=== PATIENT | male | born 1980 | race Caucasian/White ===

== ENCOUNTER 2017-08-14 19:12 | Emergency (ER) | payer OTHER ==
[2017-08-14 19:25] VITALS: BP 134/73; PULSE 79; RESP 18; TEMP 98.2
[2017-08-14] MEDS ORDERED: traMADol 50 MG STARTER PACK 3 TAB BTL PO STA (19:45)
--- NOTE | 2017-08-14 19:45 | ED ---
General Adult HPI - General Chief complaint: Extremity Injury, Upper Stated complaint: loss of function in R arm & hand Time Seen by Provider: 08/14/17 19:27 Source: patient, RN notes reviewed Mode of arrival: ambulatory Limitations: no limitations - History of Present Illness Initial comments: 36-year-old male presents to the emergency Department chief complaint of right shoulder pain. Patient has chronically and right shoulder pain for the past 6 months or so. He is worked up by his doctor in 7 MRI but he never had it because he was claustrophobic. Patient states since she's had worsening shoulder pain he gets tenderness and tingling to his hands from time to time. Patient denies any changes in any falls any trauma to the shoulder. Was hoping that we can give him something to help with his pain also discussed with him what he should do next. He denies any other symptoms at this time.Patient denies any recent fever, chills, shortness of breath, chest pain, back pain, abdominal pain, nausea vomiting, numbness or tingling, dysuria or hematuria, constipation or diarrhea, headaches or visual changes, or any other current symptoms. - Related Data Home Medications Medication Instructions Recorded Confirmed Ibuprofen [Motrin] 800 mg PO Q6HR PRN 08/14/17 08/14/17 Previous Rx's Medication Instructions Recorded traMADol HCl [Ultram] 50 mg PO Q6H PRN #20 tab 08/14/17 Allergies Allergy/AdvReac Type Severity Reaction Status Date / Time No Known Allergies Allergy Verified 08/14/17 19:35 Review of Systems ROS Statement: Those systems with pertinent positive or pertinent negative responses have been documented in the HPI. ROS Other: All systems not noted in ROS Statement are negative. Past Medical History Past Medical History: No Reported History History of Any Multi-Drug Resistant Organisms: None Reported Past Surgical History: Hernia Repair Past Psychological History: No Psychological Hx Reported Smoking Status: Current every day smoker Past Alcohol Use History: None Reported Past Drug Use History: None Reported General Exam - General Exam Comments Initial Comments: General: The patient is awake and alert, in no distress, and does not appear acutely ill. Neck: The neck is supple, there is no tenderness. Cardiovascular: There is a regular rate and rhythm. No murmur, rub or gallop is appreciated. Respiratory: Lungs are clear to auscultation, respirations are non-labored, breath sounds are equal. No wheezes, stridor, rales, or rhonchi. Musculoskeletal: Sensation intact with 2+ pulses. Pressure. Fund motion of right hand right wrist. Patient does have full range of motion of right shoulder however there is pain at extremes. Tenderness patient along the right trapezius. Neurological: CN II-XII intact, There are no obvious motor or sensory deficits. Coordination appears grossly intact. Speech is normal. Skin: Skin is warm and dry and no rashes or lesions are noted. Psychiatric: Normal mood and affect. Limitations: no limitations Course Vital Signs 08/14/17 19:23 Temperature 98.2 F Pulse Rate 79 Respiratory 18 Rate Blood Pressure 134/73 O2 Sat by Pulse 98 Oximetry Medical Decision Making - Medical Decision Making 36-year-old male presents for what appears to be a right shoulder strain. At this time we discussed that he needs an MRI which they had scheduled that he never followed up on. We discussed his numbness and tingling is coming from his right shoulder strain. We did discuss the importance of follow-up we discussed the could need physical therapy we discussed the could need surgery. We did discuss the importance of follow-up care. The patient stated he understood and is in agreement this plan. All questions have been answered. He 'll be discharged. Disposition Clinical Impression: Right shoulder strain Disposition: HOME SELF-CARE Condition: Stable Instructions: Rotator Cuff Injury (ED) Additional Instructions: Please use medication as discussed. Please follow up with family doctor if symptoms have not improved over the next two days. Please return to the emergency room if your symptoms increase or worsen or for any other concerns. Prescriptions: traMADol HCl [Ultram] 50 mg PO Q6H PRN #20 tab PRN Reason: Pain Referrals: Yovany Dupont MD [Primary Care Provider] - 1-2 days Olivier Sotelo MD [STAFF PHYSICIAN] - 1-2 days Time of Disposition: 19:45
== END 2017-08-14 20:07 | disposition home or self-care (01) ==
LOC: EC 19:12
DX: S46.911A Strain of unspecified muscle, fascia and tendon at shoulder and upper arm level, right arm, initial encounter (principal); F17.200 Nicotine dependence, unspecified, uncomplicated; X58.XXXA Exposure to other specified factors, initial encounter
CPT/HCPCS: 99283

== ENCOUNTER → 2018-03-08 | Outpatient (CLI) | payer OTHER ==
--- NOTE | 2018-03-08 22:18 | MR ---
MRI CERVICAL SPINE: CLINICAL HISTORY: M54.2 per order. Headache with neck pain causing pain or weakness into right arm an d hand after football injury per patient. TECHNIQUE: Multiplanar, multisequence imaging of the cervical spine is performed without IV contrast. COMPARISON: None. FINDINGS: Mild to moderate mucosal thickening visualized portion of right maxillary sinus is present sagittal image one. Sagittal images of the cervical spine show the craniocervical junction to appear within normal limits. The cervical and upper thoracic spinal cord is normal in course, caliber, and signal. Exaggerated cervical curvature is seen on sagittal images. The vertebral body heights are no rmal. There is [id number] multilevel disc space narrowing C3-C4 through the C5-C6 levels. Small posterior disc herniation effacing the anterior thecal sac at these levels. The bone marrow signal intensity is within normal limits. Mild multilevel anterior spurring mid cervical spine is noted. Axial images show the C2-C3 level to appear within normal limits. Axial images at C3-C4 level showed broad based posterior disc protrusion effacing the anterior thecal sac and causing mild bilateral neural foraminal narrowing due to marginal spur disc complex. Axial images at C4-C5 level showed broad based posterior disc protrusion effacing anterior thecal sac and causing moderate left and mild right-sided neural foraminal narrowing. Axial images at C5-C6 level show posterior spur disc complex effacing anterior thecal sac off to vent ral surface of the spinal cord and causing advanced left and moderate right-sided neural foraminal na rrowing. Axial images at C6-C7 and C7-T1 levels are felt within normal limits. IMPRESSION: Multilevel degenerative changes in cervical spine most prominent at C5-C6 level as detail ed above.
== END | disposition home or self-care (01) ==
LOC: RADMRIMAIN 21:16
PROVIDERS: ATTEND Psychiatry & Neurology Pain Medicine
DX: M47.812 Spondylosis without myelopathy or radiculopathy, cervical region (principal)
CPT/HCPCS: 72141

== ENCOUNTER 2020-12-19 16:50 | Inpatient (IN) | payer MEDICAID, OTHER ==
[2020-12-19 17:37] LABS: Amphetamine Screen,Urine Not Detected (NotDetected); Barbiturate Screen,Urine Not Detected (NotDetected); Benzodiazepines Screen,Urine Not Detected (NotDetected); Cocaine Screen,Urine Not Detected (NotDetected); Methadone Screen, Urine Not Detected (NotDetected); Opiate Screen,Urine Not Detected (NotDetected); Oxycodone Screen, Urine Not Detected (NotDetected); Phencyclidine Screen,Urine Not Detected (NotDetected); Tricyclic Antidepressant,Urine Not Detected (NotDetected); Urn Cannabinoid Scrn Detected (NotDetected)
--- NOTE | 2020-12-19 17:41 | CT ---
EXAMINATION TYPE: CT cervical spine wo con DATE OF EXAM: 12/19/2020 COMPARISON: MR 03/08/2018. HISTORY: neck pain CT DLP: 367.2 mGycm Automated exposure control for dose reduction was used. TECHNIQUE: CT scan of the cervical spine is obtained without contrast, axial images are obtained, sa gittal and coronal reformatted images are also reviewed. FINDINGS: There is no acute fracture or subluxation. There is moderate C3-C6 spondylosis. The vertebr al body heights are grossly maintained. No significant prevertebral soft tissue abnormality. IMPRESSION: Moderate cervical spondylosis without acute osseous abnormality.
--- NOTE | 2020-12-19 18:23 | ED ---
General Adult HPI - General Chief complaint: Psychiatric Symptoms Stated complaint: suicidal Time Seen by Provider: 12/19/20 16:53 Source: patient, EMS, RN notes reviewed, old records reviewed Mode of arrival: EMS Limitations: no limitations - History of Present Illness Initial comments: 40-year-old male presenting with suicide attempt. Patient had used the belt from a bathrobe to hang himself. Associated kicked chills when the belt didn't break. He was transported by EMS, stable vitals, no respiratory distress. He complains some minor neck pain, no focal numbness or weakness, no headache. Patient states this was a suicide attempt and he has seeking help for his depression. No chest pain or abdominal pain. Denies alcohol abuse. Denies il licit drugs or ingested substances. - Related Data Home Medications Medication Instructions Recorded Confirmed Ibuprofen [Motrin Ib] 200 mg PO Q8H PRN 12/19/20 12/19/20 Multivitamins, Thera [Multivitamin 1 tab PO DAILY 12/19/20 12/19/20 (formulary)] Allergies Allergy/AdvReac Type Severity Reaction Status Date / Time No Known Allergies Allergy Verified 12/19/20 18:06 Review of Systems ROS Statement: Those systems with pertinent positive or pertinent negative responses have been documented in the HPI. ROS Other: All systems not noted in ROS Statement are negative. Past Medical History Past Medical History: No Reported History History of Any Multi-Drug Resistant Organisms: None Reported Past Surgical History: Hernia Repair Past Psychological History: No Psychological Hx Reported Smoking Status: Current every day smoker Past Alcohol Use History: Occasional Past Drug Use History: Marijuana General Exam Limitations: no limitations General appearance: alert, in no apparent distress Head exam: Present: atraumatic, normocephalic Eye exam: Present: normal appearance, PERRL, EOMI ENT exam: Present: normal exam Neck exam: Present: full ROM, other (Superficial erythema, no abrasion, no laceration, no traumatic injury.). Absent: tenderness, meningismus, lymphadenopathy, thyromegaly Respiratory exam: Present: normal lung sounds bilaterally. Absent: respiratory distress, wheezes, rales, stridor Cardiovascular Exam: Present: regular rate, normal rhythm GI/Abdominal exam: Present: soft. Absent: distended, tenderness, guarding Extremities exam: Present: normal inspection, normal capillary refill. Absent: pedal edema, calf tenderness Neurological exam: Present: alert, oriented X3 Psychiatric exam: Present: depressed, suicidal ideation Skin exam: Present: warm, dry, intact. Absent: cyanosis, diaphoretic Course Vital Signs 12/19/20 16:55 Temperature 98.6 F Pulse Rate 116 H Respiratory 18 Rate Blood Pressure 160/101 O2 Sat by Pulse 97 Oximetry - Reevaluation(s) Reevaluation #1: 12/19/20 18:21 Patient medically cleared for EPS evaluation Medical Decision Making - Medical Decision Making 40-year-old male with attempt at suicide by hanging. Patient well-appearing with stable vitals, no stridor, no carotid bruit, no significant signs of trauma. CT performed which is negative for fracture subluxation. Patient evaluated by EPS and felt to require inpatient psychiatric evaluation and treatment. He will be admitted to this institution. - Lab Data Lab Results 12/19/20 Range/Units 17:05 Urine Opiates Screen Not Detected (NotDetected) Ur Oxycodone Screen Not Detected (NotDetected) Urine Methadone Screen Not Detected (NotDetected) Ur Propoxyphene Screen Not Detected (NotDetected) Ur Barbiturates Screen Not Detected (NotDetected) U Tricyclic Antidepress Not Detected (NotDetected) Ur Phencyclidine Scrn Not Detected (NotDetected) Ur Amphetamines Screen Not Detected (NotDetected) U Methamphetamines Scrn Not Detected (NotDetected) U Benzodiazepines Scrn Not Detected (NotDetected) Urine Cocaine Screen Not Detected (NotDetected) U Marijuana (THC) Screen Detected H (NotDetected) Disposition Clinical Impression: Attempted suicide, Depression Disposition: ADMITTED IP TO THIS [facility] Condition: Stable Is patient prescribed a controlled substance at d/c from ED?: No Referrals: None,Stated [Primary Care Provider] - 1-2 days Decision to Admit Reason: Admit from EC Decision Date: 12/19/20 Decision Time: 19:28
[2020-12-19] MEDS ORDERED: LORazepam 1 MG TAB PO PRN (21:56)
[2020-12-19] MEDS ORDERED: MAG HYDROX/AL HYDROX/SIMETH 30 ML CUP PO PRN (21:56)
[2020-12-19] MEDS ORDERED: HALOPERIDOL LACTATE 5 MG/ML 1 ML VIAL IM PRN (21:56)
[2020-12-19] MEDS ORDERED: LORazepam 2 MG/ML INJ IM PRN (21:56)
[2020-12-19] MEDS ORDERED: haloperidoL 5 MG TAB PO PRN (21:56)
[2020-12-19] MEDS ORDERED: MAGNESIUM HYDROXIDE 2,400 MG/10 ML CUP PO PRN (21:56)
[2020-12-19] MEDS ORDERED: ACETAMINOPHEN TAB 325 MG TAB PO PRN (21:56)
--- NOTE | 2020-12-20 03:58 | P.MDCNMH ---
History of Present Illness H&P Date: 12/20/20 Chief Complaint: medical eval 40 year old male with depression patient comes in due to depression , and suicidal ideation , he attempted to hang himself with bath robe. he denies nay physical complaints or medical conerns at this time , he denies any fevers, chills, chest pain, shortness of breath, GI symptoms, nausea or vomiting Review of Systems Pertinent positives as noted in HPI. All other systems were reviewed and are negative Past Medical History Past Medical History: No Reported History Additional Past Medical History / Comment(s): [facility]/flair up with vomiting, torn right rotatator cuff/miniscus History of Any Multi-Drug Resistant Organisms: None Reported Past Surgical History: Hernia Repair Additional Past Surgical History / Comment(s): Bilateral inguinal hernia repair in childhood Past Anesthesia/Blood Transfusion Reactions: No Reported Reaction Smoking Status: Current every day smoker - Past Family History Mother Family Medical History: Diabetes Mellitus Additional Family Medical History / Comment(s): [facility] Medications and Allergies Home Medications Medication Instructions Recorded Confirmed Type Ibuprofen [Motrin Ib] 200 mg PO Q8H PRN 12/19/20 12/19/20 History Multivitamins, Thera [Multivitamin 1 tab PO DAILY 12/19/20 12/19/20 History (formulary)] Allergies Allergy/AdvReac Type Severity Reaction Status Date / Time No Known Allergies Allergy Verified 12/19/20 18:06 Physical Exam Vitals: Vital Signs Temp Pulse Pulse Resp BP BP Pulse Ox 12/19/20 22:43 98.0 F 86 16 110/78 97 12/19/20 22:37 86 16 12/19/20 20:13 94 18 138/93 96 12/19/20 16:55 98.6 F 116 H 18 160/101 97 Intake and Output 12/19/20 12/19/20 12/20/20 14:59 22:59 06:59 Other: Weight 75.07 kg Constitutional: No acute distress, conversant, pleasant Eyes: Anicteric sclerae, moist conjunctiva, Pupils equal round reactive to light ENMT: NC/AT Oropharynx clear, no erythema, or exudates Neck: Supple, FROM, no masses, or JVD No carotid bruits No thyromegaly Lungs: Clear to auscultation Clear to percussion Normal respiratory effort, no accessory muscle use Cardiovascular: Heart regular in rate and rhythm, No murmurs, gallops, or rubs No peripheral edema Abdominal: Soft Nontender, no guarding, rebound or rigidity Abdomen moving with respiration Normoactive bowel sounds No hepatomegaly, No splenomegaly No palpable mass No abdominal wall hernia noted Skin: Normal temperature, tone, texture, turgor No induration No subcutaneous nodules No rash, lesions No ulcers Extremities: No digital cyanosis No clubbing Pedal pulses intact and symmetrical Radial pulses intact and symmetrical No calf tenderness Psychiatric: Alert and oriented to person, place and time Appropriate affect fair judgement Neuro Muscles Strength 5/5 in all 4 extremities Sensation to light touch grossly present throughout Cranial nerves II-XII grossly intact No focal sensory deficits Lymphatics: no palpable cervical or supraclavicular , or inguinal lymph nodes Cranial Nerve Examination - Cranial Nerves Cranial Nerve II- Optic: Intact Cranial Nerve III- Oculomotor: Intact Cranial Nerve IV- Trochlear: Intact Cranial Nerve V- Trigeminal: Intact Cranial Nerve - Abducens: Intact Cranial Nerve VII- Facial: Intact Cranial Nerve VIII- Auditory: Intact Cranial Nerve IX- Glossopharyngeal: Intact Cranial Nerve X- Vagus: Intact Cranial Nerve XI- Accessory: Intact Cranial Nerve XII- Hypoglossal: Intact Results Labs: Abnormal Lab Results - Last 24 Hours (Table) 12/19/20 Range/Units 17:05 U Marijuana (THC) Screen Detected H (NotDetected) Assessment and Plan Assessment: depression , suicidal attempt and ideation management per psych shoulder pain pain control with motrin Follow-up labs Thank you for allowing us to participate in the care of this patient. We will f vishnu peripherally. Do not hesitate to contact us with questions. Someone can be reached from the [facility] hospitalist group at all hours of the day at [phone].
[2020-12-20] MEDS: NICOTINE 14MG/24HR PATCH TRANSDERM SCH (08:18)
[2020-12-20 09:27] LABS: Basophils % (A) 0 %; Eosinophils # (A) 0.3 k/uL (0-0.7); Eosinophils % (A) 3 %; HCT 48.8 % (39.0-53.0); HGB 16.1 gm/dL (13.0-17.5); Lymphocytes # (A) 1.5 k/uL (1.0-4.8); Lymphocytes % (A) 18 %; MCV 90.8 fL (80.0-100.0); Mean Platelet Volume 8.3; Monocytes # (A) 0.4 k/uL (0-1.0); Monocytes % (A) 4 %; Neutrophils # (A) 6.3 k/uL (1.3-7.7); Neutrophils % (A) 73 %; Platelet Count 202 k/uL (150-450); RBC 5.37 m/uL (4.30-5.90); RDW 12.7 % (11.5-15.5); WBC 8.7 k/uL (3.8-10.6)
[2020-12-20 09:43] LABS: ALT 17 U/L (4-49); AST 32 U/L (17-59); African American GFR (CKD) >90 (>60 ml/min/1.73 sqM); Alkaline Phosphatase 75 U/L (38-126); Anion Gap 6 mmol/L; Bilirubin, Delta 0.2 mg/dL (0.0-0.2); Bilirubin,Unconjugated 0.3 mg/dL (0.0-1.1); Blood Urea Nitrogen 18 mg/dL (9-20); Carbon Dioxide 28 mmol/L (22-30); Chloride 102 mmol/L (98-107); Cholesterol 140 mg/dL (<200); Glucose 94 mg/dL (74-99); HDL Cholesterol 38 mg/dL (40-60); LDL Cholesterol,Calculated 93 mg/dL (0-99); Non-African American GFR(CKD) >90 (>60 ml/min/1.73 sqM); Potassium 4.5 mmol/L (3.5-5.1); Sodium 136 mmol/L (137-145); Total Bilirubin 0.5 mg/dL (0.2-1.3); Total Protein 6.6 g/dL (6.3-8.2); Triglycerides 45 mg/dL (<150)
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
[2020-12-20] MEDS: DULoxetine HCL 30 MG CAPSULE.DR PO SCH (11:49)
[2020-12-20 19:11] LABS: Hemoglobin A1C 5.6 % (4.0-6.0)
[2020-12-20] MEDS: traZODone HCL 50 MG TAB PO SCH (20:53)
[2020-12-21] MEDS: DULoxetine HCL 30 MG CAPSULE.DR PO SCH (08:45)
[2020-12-21] MEDS: NICOTINE 14MG/24HR PATCH TRANSDERM SCH (08:46)
--- NOTE | 2020-12-21 12:53 | P.PN ---
Progress Note - Text Progress Note Date: 12/21/20 Interval History: Patient was seen wandering the hallways and was directable and agreeable to sp eak with chief underwriter in the office. Patient appears to have improvement in his hygiene and grooming today. He appears to be more cooperative with chief underwriter during conversation. He states that he is feeling mild improvement in his depression along with his anxiety. He states that he was able to speak with his girlfriend yesterday and states that "conversation was more mellow". He states that they're trying to work on the Medication. He was agreeable to have his Cymbalta increased over the weekend. He claims that he has been going to groups and finding them beneficial. At this time patient denies any suicidal or homical ideations, intent or plan. Patient denies any auditory, visual hallucinations and denies any paranoia or delusions. Patient denies any side effects from the medications and has been compliant with meds. Mental Status Exam: General Appearance: Patient appears to be normal body habitus, stated age is alert, directable, and attempts to cooperate. Patient appears to have fair hygiene and grooming. Behavior: Patient is seated without any agitated behavior. Attempts to be cooperative. Speech: Patient's speech is fluent and nonpressured. Mood/Affect: Patient reports their mood is depressed and anxious, improving mildly, affect is congruent Suicidality/Homicidality: Patient denies having any homicidal ideation intent or plan. Denies any suicidal ideations intent or plan Perceptions: Patient denies any visual hallucinations and denies any auditory hallucinations Though content/process: Tangential/circumstantial, improving. Rambles at times. Focused on his stressors Memory and concentration: AOX3, grossly intact for the purposes of this session Judgment and insight: improving mildly Assessment Major depressive disorder, without psychotic features PTSD Cannabis use disorder, mild Nicotine dependence Plan: -Patient continues to meet criteria for inpatient psychiatric admission for symptom stabilization and safety. Patient has signed adult voluntary form and medication consent and was placed in patient's chart. -Medications: Increase Cymbalta to 60 mg daily for mood/anxiety/pain, continue with trazodone 25 mg daily at bedtime for insomnia. -When necessary Ativan and Haldol for agitation/aggression. -NRT - nicotine patch -SW on board for discharge planning. Encouraged the patient to participate in milieu. If patient does well over the weekend, likely discharge thursday back home. Sw to confirm with safety for discharge and to ensure that there are no guns/weapons in the house.
[2020-12-21] MEDS: traZODone HCL 50 MG TAB PO SCH (20:59)
[2020-12-22] MEDS: DULoxetine HCL 60 MG CAPSULE.DR PO SCH (08:29)
[2020-12-22] MEDS: NICOTINE 14MG/24HR PATCH TRANSDERM SCH (10:12)
--- NOTE | 2020-12-22 17:27 | P.PN ---
Progress Note - Text Progress Note Date: 12/22/20 Clinical Problems: She is depressed disorder severe without psychotic features, PTSD, cannabis use disorder, tobacco use Interim history: I reviewed the medical record and interviewed the patient. He is a 40-year-old male [facility] with a history of depression and attempted suicide by hanging. He attributes his distress to difficulties at work and relationship problems. Today, she complains of continued feelings depression and anxiety but denied having suicidal thoughts. His attending therapeutic groups and activities. He slept 6 hours last night. Mental status exam: He presented as a casually groomed 40-year-old male was pleasant on approach. He made eye contact and attended to the interview. He had a sad facial expression. He showed psychomotor retardation but no abnormal movements. Speech was not spontaneous and had decreased rate and rhythm. His affect was depressed and not reactive. He denied current suicidal ideation or wishes. Not express ideas reference, paranoid ideation or delusions. He expressed such depressive cognitions as hopelessness and helplessness. His thinking was concrete but his associations were coherent, logical and goal directed. He denied hallucinations did not appear to responding to internal sti muli. Assessment: He continued show signs and symptoms of depression unchanged from admission. Plan: Continue inpatient treatment. Continue safety precautions. Continue Cymbalta 60 mg daily and trazodone 25 mg at bedtime. Habitrol for smoking cessation. Encourage participation in therapeutic groups and activities. Evaluate clinical status response to treatment daily basis.
[2020-12-22] MEDS: traZODone HCL 50 MG TAB PO SCH (20:30)
[2020-12-23] MEDS: DULoxetine HCL 60 MG CAPSULE.DR PO SCH (08:15)
[2020-12-23] MEDS: NICOTINE 14MG/24HR PATCH TRANSDERM SCH (08:15)
--- NOTE | 2020-12-23 13:12 | P.PN ---
Progress Note - Text Progress Note Date: 12/23/20 Clinical Problems: Major depressive disorder severe without psychotic features, PTSD, cannabis use disorder, tobacco use Interim history: I reviewed the medical record and interviewed the patient. Reports that his mood has improved since admission. He is not having suicidal thoughts. He regrets the actions that led to this hospitalization and attributed to several issues. He just returned from work and was feeling tired and hungry. He didn't argue with her girlfriend before she left the house. He stated he felt as though she were abandoned him. We discussed aftercare and he expressed an interest in individual therapy. He is attending therapeutic groups and activities. He slept 5 hours last night. Mental status exam: He presented as a casually groomed 40-year-old male who has multiple tattoos on his arms and on the side of his neck. He made eye contact and attended to the interview. He had a sad facial expression. He had no abnormality of psychomotor activity and no abnormal involuntary movements. Speech was spontaneous with normal rate and rhythm. Affect was was blunted but reactive. He denied suicidal ideation or wishes. He did not express ideas reference, paranoid ideation or delusions. He denied feeling hopeless, helpless or worthless. His thinking was abstract and his associations were coherent, logical and goal directed. He denied hallucinations did not appear to responding to internal stimuli. Assessment: He appears less depressed and distressed. She denied side effects to Cymbalta or trazodone. Plan: Continue inpatient treatment. Continue safety precautions. Continue Cymbalta 60 mg daily and trazodone 25 mg at bedtime. Habitrol for smoking cessation. Encourage participation in therapeutic groups and activities. Evaluate clinical status response to treatment daily basis.
[2020-12-23] MEDS: traZODone HCL 50 MG TAB PO SCH (20:55)
[2020-12-24] MEDS: NICOTINE 14MG/24HR PATCH TRANSDERM SCH (09:02)
[2020-12-24] MEDS: DULoxetine HCL 60 MG CAPSULE.DR PO SCH (09:03)
--- NOTE | 2020-12-24 14:08 | P.PN ---
Progress Note - Text Progress Note Date: 12/24/20 Clinical Problems: Major depressive disorder severe without psychotic features, PTSD, cannabis use disorder, tobacco use Interim history: I reviewed the medical record and interviewed the patient. His mood is much improved and he denied feeling tense, nervous or anxious. He denied that he is experiencing suicidal thoughts. He has been speaking with his girlfriend a telephone. He plans to return home but inquired about a "transitional program" after he leaves the hospital. We discussed options and he agreed to referral for outpatient mental health treatment. He denied side effects to either Cymbalta or Desyrel. He is attending therapeutic groups and activities. He slept 7 hours last night. Mental status exam: He presented as a casually groomed 40-year-old male who has multiple tattoos on his arms and on the side of his neck. He made eye contact and attended to the interview. He had a blunted but bright facial expression. He had no abnormality of psychomotor activity and no abnormal involuntary movements. Speech was spontaneous with normal rate and rhythm. Affect was was blunted but reactive. He denied suicidal ideation or wishes. He did not express ideas reference, paranoid ideation or delusions. He denied feeling hopeless, helpless or worthless. His thinking was abstract and his associations were coherent, logical and goal directed. He denied hallucinations did not appear to responding to internal stimuli. Assessment: He is much improved from admission Plan: Plan for discharge on 12/25/2020 Continue safety precautions. Continue Cymbalta 60 mg daily and trazodone 25 mg at bedtime. Habitrol for smoking cessation. Encourage participation in therapeutic groups and activities. Evaluate clinical status response to treatment daily basis.
[2020-12-24] MEDS: traZODone HCL 50 MG TAB PO SCH (20:26)
[2020-12-25] MEDS: DULoxetine HCL 60 MG CAPSULE.DR PO SCH (08:19)
[2020-12-25] MEDS: NICOTINE 14MG/24HR PATCH TRANSDERM SCH ×2 (08:19→08:54)
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
[2020-12-25] MEDS: traZODone HCL 50 MG TAB PO SCH (20:47)
[2020-12-26 07:25] VITALS: BP 129/70; PULSE 99; RESP 16; TEMP 98.4
[2020-12-26] MEDS: NICOTINE 14MG/24HR PATCH TRANSDERM SCH (08:34)
[2020-12-26] MEDS: DULoxetine HCL 60 MG CAPSULE.DR PO SCH (08:34)
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
== END 2020-12-26 12:38 | disposition home or self-care (01) | DRG 885 ==
LOC: EC 16:50 → 3MHU 21:52
PROVIDERS: ADMIT Psychiatry & Neurology Psychiatry; ATTEND Psychiatry & Neurology Psychiatry
DX: F33.2 Major depressive disorder, recurrent severe without psychotic features (principal); R45.851 Suicidal ideations; F17.210 Nicotine dependence, cigarettes, uncomplicated; F12.10 Cannabis abuse, uncomplicated; Z20.822 Contact with and (suspected) exposure to COVID-19; F43.10 Post-traumatic stress disorder, unspecified; Z62.810 Personal history of physical and sexual abuse in childhood; Z79.899 Other long term (current) drug therapy; Z98.890 Other specified postprocedural states
CPT/HCPCS: 72125; 80053; 80061; 80306; 82075; 82248; 83036; 84443; 85025; 87635; 99285

== ENCOUNTER 2022-02-02 22:23 | Emergency (ER) | payer OTHER ==
[2022-02-02 22:47] VITALS: BP 144/87; PULSE 78; RESP 20; TEMP 98.4
[2022-02-02] MEDS ORDERED: HYDROcodone/APAP 5-325MG 1 EACH TAB PO STA (22:59)
[2022-02-02] MEDS ORDERED: PENICILLIN V POTASSIUM 250 MG TAB PO STA (22:59)
--- NOTE | 2022-02-02 23:04 | ED ---
General Adult HPI - General Chief complaint: Dental/Oral Stated complaint: Dental Pain, Tooth abcess Time Seen by Provider: 02/02/22 22:59 Source: patient, RN notes reviewed Mode of arrival: ambulatory Limitations: no limitations - History of Present Illness Initial comments: 41-year-old male presents to the emergency department for evaluation of dental pain. Patient states he has a history of poor dentition and has not been to the dentist in years. States his dental pain is located on the right upper jaw and suspects he has developed an infection. Denies fever, chills, headache, trismus, broken teeth, and difficulty swallowing. - Related Data Home Medications Medication Instructions Recorded Confirmed Ibuprofen [Motrin Ib] 200 mg PO Q8H PRN 12/19/20 12/19/20 Multivitamins, Thera [Multivitamin 1 tab PO DAILY 12/19/20 12/19/20 (formulary)] Previous Rx's Medication Instructions Recorded DULoxetine HCL [Cymbalta] 60 mg PO DAILY #30 capsule. 12/25/20 Nicotine 14Mg/24Hr Patch [Habitrol] 1 patch TRANSDERM DAILY #28 patch 12/25/20 traZODone HCL [Desyrel] 25 mg PO HS #15 tab 12/25/20 Ibuprofen [Motrin] 600 mg PO Q8HR PRN #20 tab 02/02/22 Penicillin V Potassium [Pen Vee K] 500 mg PO QID 10 Days #40 tablet 02/02/22 Allergies Allergy/AdvReac Type Severity Reaction Status Date / Time No Known Allergies Allergy Verified 02/02/22 22:47 Review of Systems ROS Statement: Those systems with pertinent positive or pertinent negative responses have been documented in the HPI. ROS Other: All systems not noted in ROS Statement are negative. Past Medical History Past Medical History: No Reported History Additional Past Medical History / Comment(s): Minears-recent diagnosis/flair up with vomiting, torn right rotatator cuff/miniscus History of Any Multi-Drug Resistant Organisms: None Reported Past Surgical History: Hernia Repair Additional Past Surgical History / Comment(s): Bilateral inguinal hernia repair in childhood Past Anesthesia/Blood Transfusion Reactions: No Reported Reaction Past Psychological History: Anxiety, PTSD Smoking Status: Current every day smoker Past Alcohol Use History: None Reported Past Drug Use History: None Reported - Past Family History Mother Family Medical History: Diabetes Mellitus Additional Family Medical History / Comment(s): minears General Exam Limitations: no limitations General appearance: alert, other (Well-developed, well-nourished male in moderate discomfort. Initial temperature 98.4, pulse 78, respirations 20, blood pressure 144/87, pulse ox 99% on room air.) Expanded Mouth exam: Present: normal external inspection, tongue normal. Absent: drooling, trismus Teeth exam: Present: dental caries, dental tenderness # (3&4), gingival enlargement. Absent: normal inspection, fractured tooth # Throat exam: normal inspection Neck exam: Present: normal inspection, full ROM. Absent: tenderness, meningismus, lymphadenopathy Respiratory exam: Present: normal lung sounds bilaterally. Absent: respiratory distress, wheezes, rales, rhonchi, stridor Cardiovascular Exam: Present: regular rate, normal rhythm, normal heart sounds. Absent: systolic murmur, diastolic murmur, rubs, gallop, clicks Neurological exam: Present: alert, oriented X3 Psychiatric exam: Present: normal affect, normal mood Skin exam: Present: warm, dry, intact, normal color Course Vital Signs 02/02/22 22:44 Temperature 98.4 F Pulse Rate 78 Respiratory 20 Rate Blood Pressure 144/87 O2 Sat by Pulse 99 Oximetry Medical Decision Making - Medical Decision Making This is a pleasant 41-year-old male with no significant past medical history who presents to the emergency department for evaluation of dental pain. Upon exam, patient is nontoxic in appearance. He does have evidence of ongoing or dentition with gingival hypertrophy and dental caries. Patient is tender upon palpation of teeth #3 and 4. There is no localized abscess, however patient will be started on an antibiotic and encouraged to follow up with dentist as soon as possible. He was given one [place] while present in the emergency department and discharged with a prescription for Motrin. He is instructed to continue mouthwash rinses and gentle teeth brushing. Return parameters were discussed in detail. Patient verbalizes understanding and agrees with this plan. Attending: Nicolas. Disposition Clinical Impression: Dental caries, Pain, dental Disposition: HOME SELF-CARE Condition: Stable Instructions (If sedation given, give patient instructions): Toothache (ED) Additional Instructions: Take antibiotic as directed. Alternate Tylenol and Motrin as needed for pain. Swish and spit warm salt water and/or mouth wash. Gently brush teeth. Follow-up with dentist as discussed. My [facility]. [address] [place] [address]. [place] [address] Return to the emergency department with any new, worsening, or concerning symptoms. Prescriptions: Ibuprofen [Motrin] 600 mg PO Q8HR PRN #20 tab PRN Reason: Pain Penicillin V Potassium [Pen Vee K] 500 mg PO QID 10 Days #40 tablet Is patient prescribed a controlled substance at d/c from ED?: No Referrals: Shin Jane MD [Primary Care Provider] - 1-2 days Time of Disposition: 23:04
== END 2022-02-02 23:19 | disposition home or self-care (01) ==
LOC: EC 22:23
DX: K02.9 Dental caries, unspecified (principal); F41.9 Anxiety disorder, unspecified; F17.200 Nicotine dependence, unspecified, uncomplicated; Z79.899 Other long term (current) drug therapy
CPT/HCPCS: 99282

== ENCOUNTER 2022-03-05 11:39 | Emergency (ER) | payer OTHER ==
[2022-03-05 11:50] VITALS: RESP 18; TEMP 98.1
--- NOTE | 2022-03-05 13:45 | ED ---
Anxiety HPI - General Source: patient, RN notes reviewed Mode of arrival: ambulatory Limitations: no limitations <Lizandro Flores - Last Filed: 03/05/22 13:44> <Michael Mann - Last Filed: 03/05/22 18:36> - General Chief Complaint: Anxiety Stated Complaint: anxiety Time Seen by Provider: 03/05/22 12:42 - History of Present Illness Initial Comments: 41-year-old male presents emergency Department with complaints of increasing anxiety, depression issues. Patient states his started a few months ago in which she was reevaluated and treated at [facility] but states that he recently has missed some appointments and states that he feels like symptoms are getting worse. He was placed on Cymbalta initially which was helpful but when things have become more stressful he started having some increasing stressors he was supplemented with marijuana use. Patient states he feels unstable at home but has no complaints of current suicidal ideation denies any physical complaints no medication adjustments. (Lizandro Flores) - Related Data Home Medications: Home Medications Medication Instructions Recorded Confirmed DULoxetine HCL [Cymbalta] 60 mg PO HS 03/05/22 03/05/22 Allergies/Adverse Reactions: Allergies Allergy/AdvReac Type Severity Reaction Status Date / Time No Known Allergies Allergy Verified 03/05/22 13:04 Review of Systems ROS Other: All systems not noted in ROS Statement are negative. <Lizandro Flores - Last Filed: 03/05/22 13:44> ROS Other: All systems not noted in ROS Statement are negative. <Michael Mann - Last Filed: 03/05/22 18:36> ROS Statement: Those systems with pertinent positive or pertinent negative responses have been documented in the HPI. Past Medical History Past Medical History: No Reported History Additional Past Medical History / Comment(s): Minears-recent diagnosis/flair up with vomiting, torn right rotatator cuff/miniscus History of Any Multi-Drug Resistant Organisms: None Reported Past Surgical History: Hernia Repair Additional Past Surgical History / Comment(s): Bilateral inguinal hernia repair in childhood Past Anesthesia/Blood Transfusion Reactions: No Reported Reaction Past Psychological History: Anxiety, PTSD Smoking Status: Current every day smoker Past Alcohol Use History: None Reported Past Drug Use History: None Reported - Past Family History Mother Family Medical History: Diabetes Mellitus Additional Family Medical History / Comment(s): minears <Lizandro Flores - Last Filed: 03/05/22 13:44> General Exam Limitations: no limitations General appearance: alert, in no apparent distress Head exam: Present: atraumatic, normocephalic, normal inspection Eye exam: Present: normal appearance, PERRL, EOMI. Absent: scleral icterus, conjunctival injection, periorbital swelling ENT exam: Present: normal exam, normal oropharynx, mucous membranes moist Neck exam: Present: normal inspection, full ROM. Absent: tenderness, meningismus, lymphadenopathy Respiratory exam: Present: normal lung sounds bilaterally. Absent: respiratory distress, wheezes, rales, rhonchi, stridor Cardiovascular Exam: Present: regular rate, normal rhythm, normal heart sounds. Absent: systolic murmur, diastolic murmur, rubs, gallop, clicks GI/Abdominal exam: Present: soft, normal bowel sounds. Absent: distended, tenderness, guarding, rebound, rigid Neurological exam: Present: alert, oriented X3 Psychiatric exam: Present: flat affect Skin exam: Present: warm, dry, intact, normal color. Absent: rash <Lizandro Flores M - Last Filed: 03/05/22 13:44> Course Vital Signs 03/05/22 03/05/22 11:46 17:47 Temperature 98.1 F 98.1 F Pulse Rate 99 76 Respiratory 18 18 Rate Blood Pressure 144/93 120/75 O2 Sat by Pulse 99 99 Oximetry Medical Decision Making <Michael Mann - Last Filed: 03/05/22 18:36> - Medical Decision Making Patient seen by mental health services with plan for discharge. Patient still denied suicidal ideation. (Michael Mann) - Lab Data Lab Results 03/05/22 Range/Units 13:50 Urine Opiates Screen Not Detected (NotDetected) Ur Oxycodone Screen Not Detected (NotDetected) Urine Methadone Screen Not Detected (NotDetected) Ur Propoxyphene Screen Not Detected (NotDetected) Ur Barbiturates Screen Not Detected (NotDetected) U Tricyclic Antidepress Not Detected (NotDetected) Ur Phencyclidine Scrn Not Detected (NotDetected) Ur Amphetamines Screen Not Detected (NotDetected) U Methamphetamines Scrn Not Detected (NotDetected) U Benzodiazepines Scrn Not Detected (NotDetected) Urine Cocaine Screen Not Detected (NotDetected) U Marijuana (THC) Screen Detected H (NotDetected) Disposition <Lizandro Flores - Last Filed: 03/05/22 13:44> Is patient prescribed a controlled substance at d/c from ED?: No Time of Disposition: 18:36 <Michael Mann - Last Filed: 03/05/22 18:36> Clinical Impression: Acute anxiety Disposition: HOME SELF-CARE Instructions (If sedation given, give patient instructions): Generalized Anxiety Disorder (ED) Additional Instructions: Please follow-up with mental health services tomorrow as planned. Please also follow-up to primary care physician. Return for thoughts of self-harm, was injure other concerns. Referrals: Shin Jane MD [Primary Care Provider] - 1-2 days
[2022-03-05 15:28] LABS: Amphetamine Screen,Urine Not Detected (NotDetected); Barbiturate Screen,Urine Not Detected (NotDetected); Benzodiazepines Screen,Urine Not Detected (NotDetected); Cocaine Screen,Urine Not Detected (NotDetected); Methadone Screen, Urine Not Detected (NotDetected); Opiate Screen,Urine Not Detected (NotDetected); Oxycodone Screen, Urine Not Detected (NotDetected); Phencyclidine Screen,Urine Not Detected (NotDetected); Tricyclic Antidepressant,Urine Not Detected (NotDetected); Urn Cannabinoid Scrn Detected (NotDetected)
[2022-03-05 17:49] VITALS: BP 120/75; PULSE 76
== END 2022-03-05 19:42 | disposition home or self-care (01) ==
LOC: EC 11:39
DX: F41.9 Anxiety disorder, unspecified (principal); F32.A Depression, unspecified; F43.10 Post-traumatic stress disorder, unspecified; F17.200 Nicotine dependence, unspecified, uncomplicated
CPT/HCPCS: 80306; 82075; 99284